=== PATIENT | female | born 1990 | race Caucasian/White ===

== ENCOUNTER 2018-11-13 15:47 | Emergency (ER) | payer OTHER ==
[~2018-11-13] VITALS: Ht 172.7 cm; Wt 73.5 kg
[~2018-11-13 15:47] MED LIST: METO10TA2 PO
[2018-11-13 16:27] VITALS: BP 135/76
[2018-11-13] MEDS ORDERED: BUPIVACAINE 0.25% ONE ×2 (16:42)
[2018-11-13] MEDS ORDERED: LIDOCAINE-MPF 1%, 5ML ONE ×3 (16:43→18:14)
[2018-11-13] MEDS ORDERED: BACITRACIN ZINC OINT 500U/GM, 0.9 GM ONE (18:23)
[2018-11-13] MEDS ORDERED: ONDANSETRON ODT 4 MG PO ONE (18:30)
[2018-11-13] MEDS ORDERED: OXYcodone/APAP 5/325MG TABLET PO ONE (18:30)
[2018-11-13] MEDS ORDERED: OXYcodone/APAP 5/325MG TABLET ONE (18:35)
[2018-11-13] MEDS ORDERED: ONDANSETRON ODT 4 MG ONE (18:36)
== END 2018-11-13 19:02 | disposition home or self-care (01) ==
LOC: ED 19:00
DX: S92.421B Displaced fracture of distal phalanx of right great toe, initial encounter for open fracture (principal); S91.201A Unspecified open wound of right great toe with damage to nail, initial encounter; W20.8XXA Other cause of strike by thrown, projected or falling object, initial encounter; Y93.89 Activity, other specified; Y92.009 Unspecified place in unspecified non-institutional (private) residence as the place of occurrence of the external cause; Y99.8 Other external cause status
CPT/HCPCS: 11730; 11740; 29130; 99283; Q0162

== ENCOUNTER 2020-06-14 11:32 | Inpatient (IN) | payer BC, OTHER ==
[~2020-06-14] VITALS: Ht 172.7 cm; Wt 79.4 kg
[2020-06-14] MEDS ORDERED: SODIUM CHLORIDE 0.9% 1,000ML IVBOLUS ONE (12:30)
[2020-06-14] MEDS ORDERED: FAMOTIDINE 20 MG/2 ML IV ONE (12:30)
[2020-06-14] MEDS ORDERED: ONDANSETRON 2MG/ML, 2ML IVPush ONE (12:30)
[2020-06-14] MEDS ORDERED: HALOPERIDOL 5 MG/ML IM ONE (12:30)
[2020-06-14] MEDS ORDERED: METOCLOPRAMIDE 5 MG/ML, 2ML IVPush ONE (12:30)
[2020-06-14] MEDS ORDERED: HALOPERIDOL 5 MG/ML ONE (12:38)
[2020-06-14] MEDS ORDERED: FAMOTIDINE 20 MG/2 ML ONE (12:39)
[2020-06-14] MEDS ORDERED: ONDANSETRON 2MG/ML, 2ML ONE (12:39)
[2020-06-14] MEDS ORDERED: METOCLOPRAMIDE 5 MG/ML, 2ML ONE (12:39)
[2020-06-14 12:57] LABS: MEAN CORPUSCULAR HEMOGLOBIN 30.7 pg (27.0-34.8); MEAN CORPUSCULAR HGB CONC 32.6 g/dL (32.4-35.8); MEAN CORPUSCULAR VOLUME 94.3 fL (80-100); MEAN PLATELET VOLUME 8.1 fL (7.4-10.4); PLATELET COUNT 394 x10^3/uL (130-400); RED BLOOD COUNT 4.83 x10^6/uL (3.82-5.3); RED CELL DISTRIBUTION WIDTH 13.3 % (9.6-15.2)
--- NOTE | 2020-06-14 12:59 | NUR ---
MEDS ADMIN PER JAN. IVF RUNNING. PT CONNECTED TO MONITORING. FAMILY AT BEDSIDE. PT NOT YELLING MUCH, SEEMS TO BE RELAXING.
[2020-06-14 13:06] LABS: ALANINE AMINOTRANSFERASE 26 U/L (12-78); ALBUMIN 4.4 g/dL (3.4-5.0); ANION GAP 11 mmol/L (5-15); CALCIUM 9.3 mg/dL (8.5-10.1); CHLORIDE 110 mmol/L (98-107); CREATININE 1.02 mg/dL (0.55-1.02)
[2020-06-14 13:10] LABS: ALKALINE PHOSPHATASE 78 U/L (45-117); BILIRUBIN,TOTAL 0.5 mg/dL (0.2-1.0); TOTAL PROTEIN 8.5 g/dL (6.4-8.2)
[2020-06-14 13:19] LABS: MD YES
[2020-06-14 13:23] LABS: LYMPH#(MANUAL) 2.03 x10^3/uL (1-3.4); LYMPHS% (MANUAL) 9 % (22-44); MONOS#(MANUAL) 0.45 x10^3/uL (0.3-2.7); MONOS% (MANUAL) 2 % (2-9); SEG#(MANUAL) 20.03 x10^3/uL (1.8-6.8); SEGS% (MANUAL) 89 % (42-75)
--- NOTE | 2020-06-14 13:25 | NUR ---
PT FEELING BETTER AFTER RECEIVING ABOUT 1L NS. PT RELAXED MORE AND KEEPING ARM STRAIGHT FOR IVF TO INFUSE FASTER.
[2020-06-14 13:26] LABS: <RBC MORPHOLOGY> NORMAL
[2020-06-14 13:27] LABS: <PLATELET ESTIMATE> ADEQUATE; <PLT MORPHOLOGY> NORMAL PLT MORPH
--- NOTE | 2020-06-14 13:52 | NUR ---
ALL RESULTS ARE BACK AT THIS TIME. IVF COMPLETE. CHART UP FOR RECHECK.
--- NOTE | 2020-06-14 14:00 | NUR ---
PT HAS NOT VOMITTED "IN A WHILE". PT SITTING ON LASHAWN KWON.
[2020-06-14] MEDS ORDERED: MORPHINE SULFATE 4 MG/ML, 1ML IVPush PRN (14:30)
[2020-06-14] MEDS ORDERED: MORPHINE SULFATE 4 MG/ML, 1ML ONE (14:42)
[2020-06-14] MEDS ORDERED: OMNIPAQUE 350 MG/ML, 100ML BOTTLE ONE (14:44)
--- NOTE | 2020-06-14 14:48 | NUR ---
PT BACK FROM CT. [employer] PER JAN. PT RESTING ON CHER.
--- NOTE | 2020-06-14 15:16 | NUR ---
MD AT BEDSIDE TO UPDATE PT ON POC.
--- NOTE | 2020-06-14 15:28 | NUR ---
PT STATES PAIN MEDS HELPED.
--- NOTE | 2020-06-14 15:37 | NUR ---
HOSPITALIST AT BEDSIDE.
[2020-06-14] MEDS ORDERED: DOXY25TA18 PO (15:54)
[2020-06-14] MEDS ORDERED: PIPERACILLIN/TAZO/PMX 3.375GM 50 ML ONE (16:18)
[2020-06-14] MEDS ORDERED: morphine SULFATE 10 MG/ML, 1ML IVPush PRN (16:30)
[2020-06-14] MEDS ORDERED: DOCUSATE 100 MG CAPSULE PO PRN (16:30)
[2020-06-14] MEDS: PIPERACILLIN/TAZO/PMX 3.375GM 50 ML IV SCH (16:30)
[2020-06-14] MEDS ORDERED: KETOROLAC 30 MG/1 ML IV PRN (16:30)
[2020-06-14] MEDS ORDERED: PROMETHAZINE 25 MG/ML, 1ML IM PRN (16:30)
[2020-06-14] MEDS ORDERED: POLYETHYLENE GLYCOL 17 GM PACKET PO PRN (16:30)
[2020-06-14] MEDS ORDERED: BISACODYL 10 MG SUPP PR PRN (16:30)
[2020-06-14] MEDS: SODIUM CHLORIDE 0.9% 1,000 ML IV SCH (16:38)
[2020-06-14] MEDS: FLUCONAZOLE 200 MG/100 ML 100 ML IV SCH (17:10)
--- NOTE | 2020-06-14 18:44 | NUR ---
LUNCH BREAK NOTE: PT IN RADIOLOGY. FAMILY AT BEDSIDE UPDATED ON POC.
[2020-06-14] MEDS ORDERED: OMNIPAQUE 350 MG/ML, 150 ML BOTTLE ONE (18:57)
--- NOTE | 2020-06-14 19:51 | NUR ---
REPORT GIVEN TO MARY MEJIA
[2020-06-14] MEDS: FAMOTIDINE 20 MG/2 ML IVPush SCH (22:03)
[2020-06-15] MEDS: METHOCARBAMOL 500 MG TABLET PO PRN ×3 (00:17→22:04)
[2020-06-15] MEDS: PIPERACILLIN/TAZO/PMX 3.375GM 50 ML IV SCH ×3 (01:24→16:42)
[2020-06-15 01:34] VITALS: BP 145/80
[2020-06-15 05:19] LABS: MEAN CORPUSCULAR HEMOGLOBIN 30.4 pg (27.0-34.8); MEAN CORPUSCULAR HGB CONC 32.4 g/dL (32.4-35.8); MEAN CORPUSCULAR VOLUME 93.8 fL (80-100); MEAN PLATELET VOLUME 7.9 fL (7.4-10.4); PLATELET COUNT 304 x10^3/uL (130-400); RED BLOOD COUNT 3.96 x10^6/uL (3.82-5.3); RED CELL DISTRIBUTION WIDTH 13.4 % (9.6-15.2)
[2020-06-15 05:24] LABS: ALANINE AMINOTRANSFERASE 19 U/L (12-78); ALBUMIN 3.6 g/dL (3.4-5.0); ANION GAP 6 mmol/L (5-15); CALCIUM 8.3 mg/dL (8.5-10.1); CHLORIDE 113 mmol/L (98-107)
[2020-06-15 05:35] LABS: ALKALINE PHOSPHATASE 60 U/L (45-117); BILIRUBIN,TOTAL 0.7 mg/dL (0.2-1.0); CREATININE 0.75 mg/dL (0.55-1.02); TOTAL PROTEIN 6.3 g/dL (6.4-8.2)
[2020-06-15 06:08] LABS: BASOPHILS # (AUTO) 0.06 x10^3/uL (0-0.1); BASOPHILS % (AUTO) 0 % (0-1); EOSINOPHILS % (AUTO) 0 % (1-7); LYMPHOCYTES # (AUTO) 2.99 x10^3/uL (1-3.4); LYMPHOCYTES % (AUTO) 14 % (22-44); MD SCAN; MONOCYTES # (AUTO) 0.84 x10^3/uL (0.2-0.8); MONOCYTES % (AUTO) 4 % (2-9); NEUTROPHILS # (AUTO) 17.58 x10^3/uL (1.8-6.8); NEUTROPHILS % (AUTO) 82 % (42-75)
[2020-06-15] MEDS: SODIUM CHLORIDE 0.9% 1,000 ML IV SCH (06:30)
[2020-06-15] MEDS ORDERED: POTASSIUM CHLORIDE 40 MEQ in SODIUM CHLORIDE 0.9% 500 ML IV ONE (07:30)
[2020-06-15] MEDS: FAMOTIDINE 20 MG/2 ML IVPush SCH ×2 (08:57→22:04)
[2020-06-15 09:00] VITALS: BP 122/77
[2020-06-15 13:40] VITALS: BP 129/86
[2020-06-15] MEDS: FLUCONAZOLE 200 MG/100 ML 100 ML IV SCH (18:01)
[2020-06-15 19:33] VITALS: BP 137/82
[2020-06-16 00:12] VITALS: BP 128/79
[2020-06-16] MEDS: PIPERACILLIN/TAZO/PMX 3.375GM 50 ML IV SCH ×3 (00:35→16:55)
[2020-06-16 05:57] LABS: ANION GAP 8 mmol/L (5-15); CALCIUM 8.2 mg/dL (8.5-10.1); CHLORIDE 111 mmol/L (98-107)
[2020-06-16 05:58] LABS: CREATININE 0.75 mg/dL (0.55-1.02)
[2020-06-16 05:59] LABS: BASOPHILS # (AUTO) 0.03 x10^3/uL (0-0.1); BASOPHILS % (AUTO) 0 % (0-1); EOSINOPHILS # (AUTO) 0.12 x10^3/uL (0-0.4); EOSINOPHILS % (AUTO) 1 % (1-7); LYMPHOCYTES # (AUTO) 3.53 x10^3/uL (1-3.4); LYMPHOCYTES % (AUTO) 30 % (22-44); MD NO; MEAN CORPUSCULAR HEMOGLOBIN 30.7 pg (27.0-34.8); MEAN CORPUSCULAR HGB CONC 33.2 g/dL (32.4-35.8); MEAN CORPUSCULAR VOLUME 92.4 fL (80-100); MEAN PLATELET VOLUME 8.1 fL (7.4-10.4); MONOCYTES # (AUTO) 0.72 x10^3/uL (0.2-0.8); MONOCYTES % (AUTO) 6 % (2-9); NEUTROPHILS # (AUTO) 7.22 x10^3/uL (1.8-6.8); NEUTROPHILS % (AUTO) 62 % (42-75); PLATELET COUNT 288 x10^3/uL (130-400); RED CELL DISTRIBUTION WIDTH 13.3 % (9.6-15.2)
[2020-06-16 07:35] VITALS: BP 136/82
[2020-06-16] MEDS: ONDANSETRON ODT 4 MG PO PRN ×2 (08:29→13:22)
[2020-06-16] MEDS: FAMOTIDINE 20 MG/2 ML IVPush SCH (08:29)
[2020-06-16 09:59] LABS: CLOSTRIDIUM DIFFICILE ANTIGEN NEGATIVE; CLOSTRIDIUM DIFFICILE TOXIN NEGATIVE (Negative)
[2020-06-16 14:20] VITALS: BP 132/82
[2020-06-16] MEDS ORDERED: LACTOBACILLUS CHEW TABLET PO SCH (16:00)
[2020-06-16] MEDS ORDERED: LOPERAMIDE 2 MG CAPSULE PO PRN (16:00)
[2020-06-16] MEDS ORDERED: FLUC200T4 PO (16:50)
[2020-06-16] MEDS ORDERED: LACT1CAP35 PO (16:50)
[2020-06-16] MEDS ORDERED: AMOX1TAB64 PO (16:50)
[2020-06-16] MEDS: FLUCONAZOLE 200 MG/100 ML 100 ML IV SCH (17:37)
== END 2020-06-16 19:45 | disposition home or self-care (01) | DRG 392 ==
LOC: ED 13:57 → EDIP 15:40 → 5SO 20:16
PROVIDERS: ADMIT Family Medicine; ATTEND Family Medicine
DX: R11.2 Nausea with vomiting, unspecified (principal); F12.90 Cannabis use, unspecified, uncomplicated; D72.829 Elevated white blood cell count, unspecified; R19.7 Diarrhea, unspecified; J98.2 Interstitial emphysema; Z90.49 Acquired absence of other specified parts of digestive tract; Z79.899 Other long term (current) drug therapy
CPT/HCPCS: 36415; 74240; 96361; 96372; 96374; 96375; 99285; J3490; 74177; 80048; 80053; 83036; 83690; 83735; 84100; 84443; 84703; 85025; 87324; G0378; J2405; J2543; J3480; Q0162; Q9967; J1450; J1630; J2270; J2765; J7030; J7040